=== PATIENT | male | born 1985 | race Caucasian/White ===

== ENCOUNTER 2020-05-18 10:25 | Day surgery (SDC) | payer OTHER ==
[~2020-05-18] VITALS: Ht 177.8 cm; Wt 84.8 kg
[2020-05-18 11:03] VITALS: BP 133/72
[2020-05-18 15:36] VITALS: BP 128/72
== END 2020-05-18 15:35 | disposition home or self-care (01) ==
LOC: DS 10:25 → OR 13:30 → DS 13:30
PROVIDERS: ATTEND Urology
DX: N13.2 Hydronephrosis with renal and ureteral calculous obstruction (principal); I10 Essential (primary) hypertension; K21.9 Gastro-esophageal reflux disease without esophagitis; F32.9 Major depressive disorder, single episode, unspecified; I25.10 Atherosclerotic heart disease of native coronary artery without angina pectoris; F17.210 Nicotine dependence, cigarettes, uncomplicated; Z79.899 Other long term (current) drug therapy
CPT/HCPCS: C1769; C2625; J0696; J1170; J1885; J2250; J3010; Q9967